=== PATIENT | female | born 1990 | race Caucasian/White ===

== ENCOUNTER 2021-05-23 17:46 | Emergency (ER) | payer SELFPAY ==
[~2021-05-23] VITALS: Ht 172.7 cm; Wt 65.0 kg
[2021-05-23 19:03] LABS: MICROSCOPIC INDICATED
--- NOTE | 2021-05-23 19:19 | NUR ---
pt c/o fever of 89, headache, nauseated for last 3 days. No covid vaccine, attached to monitors. vss. nadn. bed in low positon, rails engaged, call light on lap. wctm
[2021-05-23 19:21] VITALS: BP 122/93
== END 2021-05-23 20:10 | disposition home or self-care (01) ==
LOC: ED 18:15
DX: U07.1 COVID-19 (principal); N30.00 Acute cystitis without hematuria; R50.9 Fever, unspecified
CPT/HCPCS: 81001; 87086; 99283; U0003; U0005